=== PATIENT | male | born 1935 | race Hispanic/Latino ===

== ENCOUNTER 2018-07-30 16:53 | Outpatient (CLI) | payer MEDICARE | END 2018-07-30 16:54 | disposition home or self-care (01) | LOC: RAD 16:53 ==

== ENCOUNTER 2018-10-26 12:29 | Outpatient (CLI) | payer MEDICARE | END 2018-10-26 12:30 | disposition home or self-care (01) | LOC: RAD 12:30 ==

== ENCOUNTER 2018-11-13 07:29 | Outpatient (CLI) | payer MEDICARE | END 2018-11-13 07:30 | disposition home or self-care (01) | LOC: RAD 07:29 ==

== ENCOUNTER 2018-11-15 10:39 | Outpatient (CLI) | payer MEDICARE | END 2018-11-15 10:40 | disposition home or self-care (01) | LOC: RAD 10:40 ==